=== PATIENT | male | born 1995 | race African-American/Black ===

== ENCOUNTER 2018-05-22 12:27 | Inpatient (IN) | payer OTHER ==
[2018-05-22 13:39] VITALS: BMI 30.7
[2018-05-22] MEDS ORDERED: MAGNESIUM HYDROX 2400MG/30ML ORAL SUSPENSION 30 ML CUP PO PRN (15:14)
[2018-05-22] MEDS ORDERED: P-EPHED 60MG/TRIPROLIDI 2.5MG TABLET PO PRN (15:14)
[2018-05-22] MEDS ORDERED: NICOTINE POLACRILEX 2 MG GUM BC PRN (15:14)
[2018-05-22] MEDS ORDERED: MAG HYDROX/AL HYDROX/SIMETH 30 ML UNIT-DOSE CUP PO PRN (15:14)
[2018-05-22] MEDS ORDERED: MAGNESIUM CITRATE 300 ML BOTTLE PO PRN (15:14)
[2018-05-22] MEDS ORDERED: LOPERAMIDE HCL 2 MG CAPSULE PO PRN (15:14)
--- NOTE | 2018-05-22 15:14 | HP ---
CIWA Score - Admission Criteria OASAS Guidelines: Admission for Medically Managed Detox: Requires at least one of the followin. CIWA greater than 12 2. Seizures within the past 24 hours 3. Delirium tremens within the past 24 hours 4. Hallucinations within the past 24 hours 5. Acute intervention needed for co occurring medical disorder 6. Acute intervention needed for co occurring psychiatric disorder 7. Severe withdrawal that cannot be handled at a lower level of care (continued vomiting, continued diarrhea, abnormal vital signs) requiring intravenous medication and/or fluids 8. Admission ROS S - HPI Chief Complaint: opioid and xanax rehabilitation Allergies/Adverse Reactions: Allergies Allergy/AdvReac Type Severity Reaction Status Date / Time shellfish derived Allergy Intermediate Hives Verified 05/22/18 14:57 seafood Allergy Intermediate Hives Uncoded 05/22/18 14:57 History of Present Illness: 22 yo male with hx of opioid and xanax dependence is here seeking rehabilitation , Patient is court mandated by drug court after [facility]. Patient reports prior to imprisonment he was linked out patient program at [facility] and was Suboxone 4 mg BID for opioid dependence. PMHX: Anxiety and depression. Denies suicidal / homicidal ideation or suicide attempt. Denies hx of seizures. Others' Prescriptions Patient Name: Nando Velazquez Date: 1995 Address: [address] [place] [address] Sex: Male Rx Written Rx Dispensed Drug Quantity Days Supply Prescriber Name 04/15/2018 04/17/2018 chlordiazepoxide 25 mg capsule 26 5 Caleb Blake MD 02/11/2018 03/15/2018 chlordiazepoxide 25 mg capsule 26 5 Caleb Blake MD Patient Name: Nando Velazquez Date: 1995 Address: [address] [place] [id number] Sex: Male Rx Written Rx Dispensed Drug Quantity Days Supply Prescriber Name 04/09/2018 04/10/2018 buprenorphine-naloxone 8-2 mg sl film 21 14 Hank Bullock Jr, MD Patient Name: Nando Velazquez Date: 1995 Address: [address] [place] [address] Sex: Male Rx Written Rx Dispensed Drug Quantity Days Supply Prescriber Name 03/21/2018 03/21/2018 clonazepam 1 mg tablet 26 13 Ranjit Redd 03/19/2018 03/19/2018 suboxone 8 mg-2 mg sl film 15 15 Ulises Martins MD 03/19/2018 03/19/2018 suboxone 4 mg-1 mg sl film 15 15 Ulises Martins MD Exam Limitations: No Limitations - Ebola screening Have you traveled outside of the country in the last 21 days: No Have you had contact with anyone from an Ebola affected area: No Have you been sick,other than usual withdrawal symptoms: No Do you have a fever: No - Review of Systems Constitutional: No Symptoms Reported EENT: reports: No Symptoms Reported Respiratory: reports: No Symptoms reported Cardiac: reports: No Symptoms Reported GI: reports: No Symptoms Reported : reports: No Symptoms Reported Musculoskeletal: reports: No Symptoms Reported Integumentary: reports: No Symptoms Reported Neuro: reports: No Symptoms reported Endocrine: reports: No Symptoms Reported Hematology: reports: No Symptoms Reported Psychiatric: reports: Orientated x3, Anxious Other Systems: Reviewed and Negative Patient History - Patient Medical History Hx Anemia: No Hx Asthma: No Hx Chronic Obstructive Pulmonary Disease (COPD): No Hx Cancer: No Hx Cardiac Disorders: No Hx Congestive Heart Failure: No Hx Hypertension: No Hx Hypercholesterolemia: No Hx Pacemaker: No HX Cerebrovascular Accident: No Hx Seizures: No Hx Dementia: No Hx Diabetes: No Hx Gastrointestinal Disorders: No Hx Liver Disease: No Hx Genitourinary Disorders: No Hx Sexually Transmitted Disorders: No Hx Renal Disease (ESRD): No Hx Thyroid Disease: No Hx Human Immunodeficiency Virus (HIV): No Hx Hepatitis C: No Hx Depression: Yes Hx Suicide Attempt: No Hx Bipolar Disorder: No Hx Schizophrenia: No - Patient Surgical History Past Surgical History: Yes Hx Neurologic Surgery: No Hx Cataract Extraction: No Hx Cardiac Surgery: No Hx Lung Surgery: No Hx Breast Surgery: No Hx Breast Biopsy: No Hx Abdominal Surgery: No Hx Appendectomy: No Hx Cholecystectomy: No Hx Genitourinary Surgery: No Hx Section: No Hx Orthopedic Surgery: No Other Surgical History: tonsillectomy 2012 Anesthesia Reaction: No - PPD History Previous Implant?: Yes Documented Results: Negative w/proof Date: 09/12/17 PPD to be Administered?: No - Reproductive History Patient is a Female of Child Bearing Age (11 -55 yrs old): No Patient : No - Smoking Cessation Smoking history: Current every day smoker Have you smoked in the past 12 months: Yes Aproximately how many cigarettes per day: 10 Cigars Per Day: 0 Hx Chewing Tobacco Use: No Initiated information on smoking cessation: Yes 'Breaking Loose' booklet given: 05/22/18 - Substance & Tx. History Hx Alcohol Use: No Hx Substance Use: Yes Substance Use Type: Heroin, Tranquilizers Hx Substance Use Treatment: Yes (Rehab Inpatient [facility] 2018) - Substances Abused Oxycontin Route: Oral Frequency: Daily Amount used: 90mg Age of first use: 20 Date of Last Use: 03/14/18 xanax Route: Oral Frequency: Daily Amount used: 3mg Age of first use: 20 Date of Last Use: 03/14/18 codeine Route: Oral Frequency: Daily Amount used: 4 oz daily Age of first use: 20 Date of Last Use: 03/14/18 Family Disease History - Family Disease History Family Disease History: [place]: Mother (living, hx breast cancer, etoh), Other: Father (living, no contact), Mother, Brother (none), Sister (none) Admission Physical Exam S - Vital Signs Vital Signs: Vital Signs - 24 hr 05/22/18 13:36 Temperature 97.0 F L Pulse Rate 115 H Respiratory 18 Rate Blood Pressure 147/86 - Physical General Appearance: Yes: Appropriately Dressed, Obese, Anxious HEENTM: Yes: EOMI, Hearing grossly Normal, Normal ENT Inspection, Normocephalic , Normal Voice, KAT, Pharynx Normal, Tm's normal Respiratory: Yes: Within Normal Limits Neck: Yes: Within Normal Limits Breast: Yes: Breast Exam Deferred Cardiology: Yes: Regular Rhythm, Regular Rate Abdominal: Yes: Normal Bowel Sounds, Non Tender, Flat, Soft Genitourinary: Yes: Within Normal Limits Back: Yes: Normal Inspection Musculoskeletal: Yes: full range of Motion, Gait Steady, Pelvis Stable Extremities: Yes: Normal Capillary Refill, Normal Inspection, Normal Range of Motion, Non-Tender Neurological: Yes: sales performance analyst II-XII NML intact, Fully Oriented, Alert, Motor Strength 5/5, Depressed Affect Integumentary: Yes: Normal Color, Dry, Warm Lymphatic: Yes: Within Normal Limits - Diagnostic (1) Opioid dependence Current Visit: Yes Status: Acute (2) Sedative hypnotic or anxiolytic dependence Current Visit: Yes Status: Acute (3) Nicotine dependence Current Visit: No Status: Chronic Qualifiers: Nicotine product type: cigarettes Substance use status: uncomplicated Qualified Code(s): F17.210 - Nicotine dependence, cigarettes, uncomplicated Comment: counseled abstinence - not ready BHS Breath Alcohol Content Breath Alcohol Content: 0 Urine Drug Screen - Results Drug Screen Negative: No Urine Drug Screen Results: THC-Marijuana, BUP-Suboxone Inpatient Rehab Admission - Rehab Decision to Admit Inpatient rehab admission?: Yes - Initial Determination Are CD services needed?: Yes Free of communicable disease: Yes Not in need of hospitalization: Yes - Rehab Admission Criteria Previous failed treatment: Yes Poor recovery environment: Yes Comorbidities: Yes Lacks judgement: Yes Patient is meeting Inpatient Rehab admission criteria:: Yes
[2018-05-22 18:52] LABS: HEMATOCRIT 44.8 % (35.4-49); HEMOGLOBIN 15.9 GM/dL (11.7-16.9); MCH 31.8 pg (25.7-33.7); MCHC 35.4 g/dl (32.0-35.9); MEAN CELL VOLUME 89.8 fl (80-96); MEAN PLT VOLUME 8.3 fl (7.5-11.1); PLATELET COUNT 221 K/MM3 (134-434); RBC 4.99 M/mm3 (4.00-5.60); RDW 13.7 % (11.9-15.9); WHITE BLOOD COUNT 8.8 K/mm3 (4.0-10.0)
[2018-05-22 19:46] LABS: ALK PHOS 104 U/L (45-117); ANION GAP 7 MMOL/L (8-16); BLOOD UREA NITROGEN 10 mg/dL (7-18); CALCIUM 9.2 mg/dL (8.5-10.1); CHLORIDE 103 mmol/L (98-107); CO2 29 mmol/L (21-32); CREATININE 0.8 mg/dL (0.55-1.3); GLUCOSE,RANDOM 84 mg/dL (74-106); POTASSIUM 4.3 mmol/L (3.5-5.1); SGOT/AST 24 U/L (15-37); SGPT/ALT 44 U/L (13-61); SODIUM 139 mmol/L (136-145); TOT PROT 7.5 g/dl (6.4-8.2)
[2018-05-22] MEDS: THIAMINE HCL 100 MG TABLET (FP) PO SCH (21:04)
[2018-05-22] MEDS: MELATONIN 5 MG TABLETS PO PRN (21:04)
[2018-05-22] MEDS ORDERED: QUEtiapine FUMARATE 25 MG TABLET (FP) PO ONE (22:00)
[2018-05-23] MEDS: NICOTINE 14 MG/24 HOURS TOPICAL PATCH TD SCH (10:36)
[2018-05-23] MEDS: PRENATAL VITAMINS W/ FOLIC ACID TABLET (FP) PO SCH (10:36)
--- NOTE | 2018-05-23 14:06 | PN ---
[facility] Progress Note Note: PT IS A 22 Y/O MALE ADMITTED YESTERDAY WHO REPORTS HE WAS ON SUBOXONE 8MG/2MG IN A.M AND 4 MG/1MG IN P.M BEFORE GOING TO [facility] IN MARCH OF 2018 AND RELEASED ON 05/22/18. PT REPORTS HE WAS BROUGHT STRAIGHT TO TREATMENT YESTERDAY AFTER RELEASE. PT REPORTS HE WAS NOT ON MAT WHILE IN [facility] BUT USED SUBOXONE AND MARIJUANA ONCE LAST WEEK IN [facility]. UDS HERE YESTERDAY IS (+)THC AND (+) SUBOXONE. PT IS NOT YET IN APPARENT DISCOMFORT AND NO C/O WITHDRAWAL SX/ CRAVINGS TODAY. ALERT O X 3. OOB AMBULATING WITH STEADY GAIT AND PARTICIPATING IN UNIT ACTIVITIES. PT IS INTERESTED IN GETTING BACK ON SUBOXONE WHILE IN REHAB. PT WILL MEET WITH HIS COUNSELOR TO PLAN ON AFTERCARE REFERRAL POST REHAB AND CONTINUATION OF MAT AFTER DISCHARGE. Vital Signs (72 hours) 05/22/18 05/22/18 05/23/18 13:36 18:31 00:30 Temperature 97.0 F L 98.4 F Pulse Rate 115 H 101 H Respiratory 18 20 20 Rate Blood Pressure 147/86 139/80 05/23/18 05/23/18 03:30 07:04 Temperature Pulse Rate Respiratory 18 18 Rate Blood Pressure Laboratory Tests 05/22/18 05/22/18 05/22/18 15:00 15:00 15:00 WBC 8.8 RBC 4.99 Hgb 15.9 Hct 44.8 MCV 89.8 MCH 31.8 MCHC 35.4 RDW 13.7 Plt Count 221 MPV 8.3 Sodium 139 Potassium 4.3 Chloride 103 Carbon Dioxide 29 Anion Gap 7 L BUN 10 Creatinine 0.8 Creat Clearance w eGFR 120.88 Random Glucose 84 Calcium 9.2 Total Bilirubin 1.0 AST 24 ALT 44 Alkaline Phosphatase 104 Total Protein 7.5 Albumin 4.0 RPR Titer Nonreactive NAD PLAN:REPEAT DRUG SCREEN ON 05/06/18 FOLLOW UP WITH COUNSELOR FOR AFTERCARE PLANNING EVALUATION FOR MAT WITH PT CONSENT.
--- NOTE | 2018-05-23 14:10 | CONSULT ---
[facility] Psychiatric Consult - Data Date of interview: 05/23/18 Admission source: Court mandated Identifying data: Mr Velazquez is a 22 years old single Black male unemployed with no source of oncome, domiciled living with familyseeking detox treatment for opioid and benzodiazepine Substance Abuse History: Reports history of Oxycontin, codeine and xanax use. Refer to addiction counselor's summary for further information Medical History: Uremarkable except for tonsillectomy in 2011. Smokes 10 cigarettes daily Psychiatric History: Patient reports that his first contact was in the 6th grade when he was admitted to [facility] for stating he did not want to live anymore after becoming frustated in school. He does not recall how long he was there but he was not started on medication. He has no further psychiatric contact till 2017 when he attended [facility]. He saw Dr Ornelas there for depression and anxiety and he was prescribed Buspar 15 mg po BID and Seroquel 200 mg po HS. He was discharged from [facility] in February and was incarcerated at [facility] from March 2018 to yesterday. [facility], he was prescribed Buspar 15 mg po BID and Remeron 45 mg po HS. He was to continue medications during this admission course. Physical/Sexual Abuse/Trauma History: Denies history of emotional, physical or sexual abuse as well as DV relationship Additional Comment: Reports history of multiple previous misdemear arrests on charges of drug possession, menacing, violation, order of protection Mental Status Exam - Mental Status Exam Alert and Oriented to: Time, Place, Person Cognitive Function: Fair Patient Appearance: Well Groomed Mood: Hopeful, Euthymic Patient Behavior: Cooperative Speech Pattern: Clear Voice Loudness: Normal Thought Process: Intact, Goal Oriented Thought Disorder: Not Present Hallucinations: Denies Homicidal Ideation: Denies Insight/Judgement: Fair Sleep: Poorly Appetite: Good Muscle strength/Tone: Normal Gait/Station: Normal Psychiatric Findings - Problem List ([place] 1, 2,3) (1) Anxiety disorder Current Visit: Yes Status: Chronic (2) Substance-induced sleep disorder Current Visit: Yes Status: Acute (3) Opioid dependence Current Visit: Yes Status: Acute (4) Sedative hypnotic or anxiolytic dependence Current Visit: Yes Status: Acute (5) Nicotine dependence Current Visit: No Status: Chronic Qualifiers: Nicotine product type: cigarettes Substance use status: uncomplicated Qualified Code(s): F17.210 - Nicotine dependence, cigarettes, uncomplicated Comment: counseled abstinence - not ready - Initial Treatment Plan Initial Treatment Plan: 1) Continue Buspar 15 mg po BID and Remeron 45 mg po HS. 2) Continue inpatient rehabilitation
[2018-05-23] MEDS: THIAMINE HCL 100 MG TABLET (FP) PO SCH (21:05)
[2018-05-23] MEDS: MIRTAZAPINE 15 MG TABLET (FP) PO SCH (21:05)
[2018-05-23] MEDS: MELATONIN 5 MG TABLETS PO PRN (21:06)
[2018-05-24 07:06] VITALS: BP 123/83; PULSE 72; TEMP 97.7
[2018-05-24] MEDS: hydrOXYzine PAMOATE 50 MG CAPSULE (FP) PO PRN (09:58)
[2018-05-24] MEDS: PRENATAL VITAMINS W/ FOLIC ACID TABLET (FP) PO SCH (09:58)
[2018-05-24] MEDS: NICOTINE 14 MG/24 HOURS TOPICAL PATCH TD SCH (09:59)
[2018-05-24] MEDS: MIRTAZAPINE 15 MG TABLET (FP) PO SCH (21:04)
[2018-05-24] MEDS: THIAMINE HCL 100 MG TABLET (FP) PO SCH (21:05)
[2018-05-24] MEDS: MELATONIN 5 MG TABLETS PO PRN (21:05)
[2018-05-25] MEDS: PRENATAL VITAMINS W/ FOLIC ACID TABLET (FP) PO SCH (09:43)
[2018-05-25] MEDS: NICOTINE 14 MG/24 HOURS TOPICAL PATCH TD SCH (09:43)
[2018-05-25 11:18] LABS: PH,URINE 5.5 (5.0-8.0); URINE APPEARANCE CLEAR; URINE BILIRUBIN NEGATIVE (<2.0 mg/dL); URINE COLOR YELLOW; URINE GLUCOSE (UA) NEGATIVE (NEGATIVE); URINE KETONE NEGATIVE (NEGATIVE); URINE LEUK ESTERASE NEGATIVE (NEGATIVE); URINE NITRITE NEGATIVE (NEGATIVE); URINE PROTEIN NEGATIVE (NEGATIVE); URINE UROBILINOGEN 0.2 mg/dL (0.2-1.0)
[2018-05-25] MEDS: hydrOXYzine PAMOATE 50 MG CAPSULE (FP) PO PRN (21:02)
[2018-05-25] MEDS: THIAMINE HCL 100 MG TABLET (FP) PO SCH (21:02)
[2018-05-25] MEDS: MIRTAZAPINE 15 MG TABLET (FP) PO SCH (21:02)
[2018-05-26] MEDS: NICOTINE 14 MG/24 HOURS TOPICAL PATCH TD SCH (11:21)
[2018-05-26] MEDS: PRENATAL VITAMINS W/ FOLIC ACID TABLET (FP) PO SCH (11:21)
[2018-05-26] MEDS: MIRTAZAPINE 15 MG TABLET (FP) PO SCH (21:03)
[2018-05-26] MEDS: THIAMINE HCL 100 MG TABLET (FP) PO SCH (21:04)
[2018-05-26] MEDS: MELATONIN 5 MG TABLETS PO PRN (21:05)
[2018-05-27] MEDS: PRENATAL VITAMINS W/ FOLIC ACID TABLET (FP) PO SCH (09:40)
[2018-05-27] MEDS: NICOTINE 14 MG/24 HOURS TOPICAL PATCH TD SCH (09:40)
[2018-05-27] MEDS: MIRTAZAPINE 15 MG TABLET (FP) PO SCH (21:03)
[2018-05-27] MEDS: THIAMINE HCL 100 MG TABLET (FP) PO SCH (21:04)
[2018-05-27] MEDS: MELATONIN 5 MG TABLETS PO PRN (21:04)
[2018-05-28] MEDS: PRENATAL VITAMINS W/ FOLIC ACID TABLET (FP) PO SCH (09:55)
[2018-05-28] MEDS: NICOTINE 14 MG/24 HOURS TOPICAL PATCH TD SCH (09:56)
[2018-05-28] MEDS: MIRTAZAPINE 15 MG TABLET (FP) PO SCH (21:33)
[2018-05-28] MEDS: THIAMINE HCL 100 MG TABLET (FP) PO SCH (21:33)
[2018-05-28] MEDS: IBUPROFEN 400 MG TABLET (FP) PO PRN (21:34)
[2018-05-29] MEDS: PRENATAL VITAMINS W/ FOLIC ACID TABLET (FP) PO SCH (09:57)
[2018-05-29] MEDS: NICOTINE 14 MG/24 HOURS TOPICAL PATCH TD SCH (09:57)
[2018-05-29] MEDS: THIAMINE HCL 100 MG TABLET (FP) PO SCH (21:38)
[2018-05-29] MEDS: MIRTAZAPINE 15 MG TABLET (FP) PO SCH (21:38)
[2018-05-30] MEDS: ACETAMINOPHEN 325 MG TABLET (FP) PO PRN (12:01)
[2018-05-30] MEDS: PRENATAL VITAMINS W/ FOLIC ACID TABLET (FP) PO SCH (12:01)
[2018-05-30] MEDS: MENTHOL/PHENOL 1 EACH UD MM PRN (12:03)
[2018-05-30] MEDS: NICOTINE 14 MG/24 HOURS TOPICAL PATCH TD SCH (12:03)
[2018-05-30] MEDS: THIAMINE HCL 100 MG TABLET (FP) PO SCH (21:25)
[2018-05-30] MEDS: MIRTAZAPINE 15 MG TABLET (FP) PO SCH (21:25)
[2018-05-31] MEDS: PRENATAL VITAMINS W/ FOLIC ACID TABLET (FP) PO SCH (12:07)
[2018-05-31] MEDS: MENTHOL/PHENOL 1 EACH UD MM PRN (12:08)
[2018-05-31] MEDS: ACETAMINOPHEN 325 MG TABLET (FP) PO PRN (12:08)
[2018-05-31] MEDS: NICOTINE 14 MG/24 HOURS TOPICAL PATCH TD SCH (12:09)
[2018-05-31] MEDS: guaiFENesin 200 MG/10 ML 10 ML UNIT-DOSE CUPS PO PRN (12:10)
[2018-05-31] MEDS: THIAMINE HCL 100 MG TABLET (FP) PO SCH (22:14)
[2018-05-31] MEDS: MIRTAZAPINE 15 MG TABLET (FP) PO SCH (22:14)
[2018-06-01] MEDS: PRENATAL VITAMINS W/ FOLIC ACID TABLET (FP) PO SCH (09:54)
[2018-06-01] MEDS: NICOTINE 14 MG/24 HOURS TOPICAL PATCH TD SCH (09:55)
[2018-06-01] MEDS: guaiFENesin 200 MG/10 ML 10 ML UNIT-DOSE CUPS PO PRN (09:57)
[2018-06-01] MEDS: MENTHOL/PHENOL 1 EACH UD MM PRN (09:57)
[2018-06-01] MEDS: ACETAMINOPHEN 325 MG TABLET (FP) PO PRN (09:58)
[2018-06-01] MEDS: MIRTAZAPINE 15 MG TABLET (FP) PO SCH (21:33)
[2018-06-01] MEDS: THIAMINE HCL 100 MG TABLET (FP) PO SCH (21:34)
[2018-06-02] MEDS: PRENATAL VITAMINS W/ FOLIC ACID TABLET (FP) PO SCH (11:00)
[2018-06-02] MEDS: NICOTINE 14 MG/24 HOURS TOPICAL PATCH TD SCH (11:00)
[2018-06-02] MEDS: MIRTAZAPINE 15 MG TABLET (FP) PO SCH (21:25)
[2018-06-02] MEDS: THIAMINE HCL 100 MG TABLET (FP) PO SCH (21:26)
[2018-06-03] MEDS: PRENATAL VITAMINS W/ FOLIC ACID TABLET (FP) PO SCH (11:41)
[2018-06-03] MEDS: ACETAMINOPHEN 325 MG TABLET (FP) PO PRN (11:41)
[2018-06-03] MEDS: NICOTINE 14 MG/24 HOURS TOPICAL PATCH TD SCH (11:42)
[2018-06-03] MEDS: THIAMINE HCL 100 MG TABLET (FP) PO SCH (21:38)
[2018-06-03] MEDS: MIRTAZAPINE 15 MG TABLET (FP) PO SCH (21:38)
[2018-06-04] MEDS: PRENATAL VITAMINS W/ FOLIC ACID TABLET (FP) PO SCH (10:20)
[2018-06-04] MEDS: NICOTINE 14 MG/24 HOURS TOPICAL PATCH TD SCH (10:20)
[2018-06-04] MEDS: MIRTAZAPINE 15 MG TABLET (FP) PO SCH (21:28)
[2018-06-04] MEDS: THIAMINE HCL 100 MG TABLET (FP) PO SCH (21:28)
[2018-06-05] MEDS: PRENATAL VITAMINS W/ FOLIC ACID TABLET (FP) PO SCH (12:19)
[2018-06-05] MEDS: NICOTINE 14 MG/24 HOURS TOPICAL PATCH TD SCH (12:19)
[2018-06-05] MEDS: THIAMINE HCL 100 MG TABLET (FP) PO SCH (21:36)
[2018-06-05] MEDS: MIRTAZAPINE 15 MG TABLET (FP) PO SCH (21:36)
[2018-06-06] MEDS: NICOTINE 14 MG/24 HOURS TOPICAL PATCH TD SCH (12:14)
[2018-06-06] MEDS: PRENATAL VITAMINS W/ FOLIC ACID TABLET (FP) PO SCH (12:31)
[2018-06-06] MEDS: MIRTAZAPINE 15 MG TABLET (FP) PO SCH (21:48)
[2018-06-06] MEDS: THIAMINE HCL 100 MG TABLET (FP) PO SCH (21:48)
[2018-06-07] MEDS: NICOTINE 14 MG/24 HOURS TOPICAL PATCH TD SCH (10:12)
[2018-06-07] MEDS: PRENATAL VITAMINS W/ FOLIC ACID TABLET (FP) PO SCH (10:12)
[2018-06-07] MEDS: MIRTAZAPINE 15 MG TABLET (FP) PO SCH (21:27)
[2018-06-07] MEDS: THIAMINE HCL 100 MG TABLET (FP) PO SCH (21:27)
[2018-06-07] MEDS: IBUPROFEN 400 MG TABLET (FP) PO PRN (21:28)
[2018-06-08] MEDS: PRENATAL VITAMINS W/ FOLIC ACID TABLET (FP) PO SCH (10:21)
[2018-06-08] MEDS: ACETAMINOPHEN 325 MG TABLET (FP) PO PRN (10:21)
[2018-06-08] MEDS: NICOTINE 14 MG/24 HOURS TOPICAL PATCH TD SCH (10:21)
[2018-06-08] MEDS: THIAMINE HCL 100 MG TABLET (FP) PO SCH (21:44)
[2018-06-08] MEDS: MIRTAZAPINE 15 MG TABLET (FP) PO SCH (21:44)
[2018-06-09] MEDS: PRENATAL VITAMINS W/ FOLIC ACID TABLET (FP) PO SCH (11:09)
[2018-06-09] MEDS: NICOTINE 14 MG/24 HOURS TOPICAL PATCH TD SCH (11:09)
--- NOTE | 2018-06-09 15:16 | PN ---
[facility] Progress Note Note: NURSE YELENA INFORMED THIS PROVIDER THAT PT WALKED OFF THE UNIT . Vital Signs - 24 hr 06/09/18 06/09/18 06/09/18 00:30 03:30 06:41 Respiratory 18 18 18 Rate Laboratory Tests 05/22/18 05/22/18 05/22/18 15:00 15:00 15:00 WBC 8.8 RBC 4.99 Hgb 15.9 Hct 44.8 MCV 89.8 MCH 31.8 MCHC 35.4 RDW 13.7 Plt Count 221 MPV 8.3 Sodium 139 Potassium 4.3 Chloride 103 Carbon Dioxide 29 Anion Gap 7 L BUN 10 Creatinine 0.8 Creat Clearance w eGFR 120.88 Random Glucose 84 Calcium 9.2 Total Bilirubin 1.0 AST 24 ALT 44 Alkaline Phosphatase 104 Total Protein 7.5 Albumin 4.0 Urine Color Urine Appearance Urine pH Ur Specific [place] Urine Protein Urine Glucose (UA) Urine Ketones Urine Blood Urine Nitrite Urine Bilirubin Urine Urobilinogen Ur Leukocyte Esterase RPR Titer Nonreactive 05/25/18 11:00 WBC RBC Hgb Hct MCV MCH MCHC RDW Plt Count MPV Sodium Potassium Chloride Carbon Dioxide Anion Gap BUN Creatinine Creat Clearance w eGFR Random Glucose Calcium Total Bilirubin AST ALT Alkaline Phosphatase Total Protein Albumin Urine Color Yellow Urine Appearance Clear Urine pH 5.5 Ur Specific [place] 1.024 Urine Protein Negative Urine Glucose (UA) Negative Urine Ketones Negative Urine Blood Negative Urine Nitrite Negative Urine Bilirubin Negative Urine Urobilinogen 0.2 Ur Leukocyte Esterase Negative RPR Titer NAD PLAN:PT LEFT AMA
== END 2018-06-09 13:00 | disposition left against medical advice (07) | DRG 770 ==
LOC: YASAS 12:27 → Y5N 16:33
PROVIDERS: ADMIT Neuromusculoskeletal Medicine & OMM; ATTEND Neuromusculoskeletal Medicine & OMM
PROC: HZ42ZZZ Group Counseling for Substance Abuse Treatment, Cognitive-Behavioral (ICD-10-PCS; principal; 2018-05-22)
DX: F11.23 Opioid dependence with withdrawal (principal); F13.230 Sedative, hypnotic or anxiolytic dependence with withdrawal, uncomplicated; F11.20 Opioid dependence, uncomplicated; F17.210 Nicotine dependence, cigarettes, uncomplicated; F41.9 Anxiety disorder, unspecified; F19.282 Other psychoactive substance dependence with psychoactive substance-induced sleep disorder; E66.9 Obesity, unspecified; Z68.30 Body mass index [BMI] 30.0-30.9, adult; Z91.013 Allergy to seafood
CPT/HCPCS: 36415; 80053; 81003; 85027; 86593